=== PATIENT | male | born 1995 | race Caucasian/White ===

== ENCOUNTER 2021-09-03 16:21 | Emergency (ER) | payer MEDICAID ==
[2021-09-03] MEDS: Aspirin 81 MG Tab.Chew ONE ×2 (16:33→17:26)
[2021-09-03] MEDS ORDERED: Sodium Chloride 0.9% 10 ML Syringe FLUSH PRN (16:49)
[2021-09-03] MEDS ORDERED: Sodium Chloride 0.9% 1,000 ML IV ONE (16:54)
[2021-09-03 17:01] LABS: ANION GAP 16.5 mmol/L (5-15); CHLORIDE,CL 103 mmol/L (98-107); SODIUM,NA 142 mmol/L (136-145)
[2021-09-03] MEDS ORDERED: Aspirin 81 MG Tab.Chew PO ONE (17:07)
[2021-09-03] MEDS: Nitroglycerin 0.4 MG Tab.SL SL PRN ×2 (17:23→17:36)
[2021-09-03] MEDS ORDERED: Ketorolac 30 MG/ML SDV IVPUSH ONE (17:38)
== END 2021-09-03 18:15 | disposition home or self-care (01) ==
LOC: KA.ED 16:21
DX: R09.89 Other specified symptoms and signs involving the circulatory and respiratory systems (principal)
CPT/HCPCS: 36415; 71045; 80053; 84484; 85025; 85379; 86140; 93005; 96374; 99284; 99285-25; A9270-GY; J1885; J7030